=== PATIENT | female | born 1950 | race Caucasian/White ===

== ENCOUNTER 2019-01-24 09:02 | Emergency (ER) | payer MEDICARE, OTHER ==
[2019-01-24 09:24] VITALS: BP 159/93
--- NOTE | 2019-01-24 09:43 | ED ---
Throat Pain/Nasal Congestion - HPI Summary HPI Summary: Sinus congestion, coughing, post nasal drip and eye irritation. Onset 8 days ago. She has had some pressure in both ears as well. No SOB. No fever or chills. Symptoms are moderate. No other complaints. - History of Current Complaint Chief Complaint: UCGeneralIllness Time Seen by Provider: 01/24/19 09:27 - Allergies/Home Medications Allergies/Adverse Reactions: Allergies Allergy/AdvReac Type Severity Reaction Status Date / Time No Known Allergies Allergy Verified 01/24/19 09:19 Home Medications: Home Medications guaiFENesin [Mucinex] 600 mg PO Q12HR PRN 01/24/19 [History Confirmed 01/24/19] PMH/Surg Hx/FS Hx/Imm Hx Infectious Disease History: No Infectious Disease History: Denies: Traveled Outside the [place] in Last 30 Days - Family History Known Family History: Positive: None - Social History Occupation: Retired Lives: With Family Alcohol Use: None Substance Use Type: Reports: None Smoking Status (MU): Never Smoked Tobacco Review of Systems Constitutional: Negative Positive: Drainage, Erythema Positive: Nasal Discharge Positive: Cough All Other Systems Reviewed And Are Negative: Yes Physical Exam Triage Information Reviewed: Yes Vital Signs On Initial Exam: Initial Vitals Temp Pulse Resp BP Pulse Ox 98.5 F 77 20 159/93 100 01/24/19 09:20 01/24/19 09:20 01/24/19 09:20 01/24/19 09:20 01/24/19 09:20 Vital Signs Reviewed: Yes Appearance: Positive: Well-Appearing, No Pain Distress Skin: Positive: Warm, Skin Color Reflects Adequate Perfusion Head/Face: Positive: Normal Head/Face Inspection Eyes: Positive: EOMI, MARYANNE, Conjunctiva Inflammed, Discharge ENT: Positive: Pharyngeal erythema, Nasal congestion, TM dull - bilateral retraction, Sinus tenderness Neck: Positive: Nontender Respiratory/Lung Sounds: Positive: Clear to Auscultation, Breath Sounds Present Cardiovascular: Positive: RRR. Negative: Murmur Abdomen Description: Negative: Distended Musculoskeletal: Positive: Strength/ROM Intact Neurological: Positive: Sensory/Motor Intact, Alert, Oriented to Person Place, Time, CN Intact II-III Psychiatric: Positive: Normal - [place] Coma Scale Best Eye Response: 4 - Spontaneous Best Motor Response: 6 - Obeys Commands Best Verbal Response: 5 - Oriented Coma Scale Total: 15 Diagnostics - Vital Signs Vital Signs Temp Pulse Resp BP Pulse Ox 01/24/19 09:20 98.5 F 77 20 159/93 100 - Laboratory Lab Statement: Any lab studies that have been ordered have been reviewed, and results considered in the medical decision making process. EENT Course/Dx - Course Course Of Treatment: 68 yr old with sinusitis and conjunctivitis. Rx meds. DC home. - Diagnoses Provider Diagnoses: Sinusitis, Conjunctivitis, Hypertension Discharge - Sign-Out/Discharge Documenting (check all that apply): Patient Departure All imaging exams completed and their final reports reviewed: No Studies - Discharge Plan Condition: Good Disposition: HOME Prescriptions: Amoxicillin/Clavulanate TAB* [Augmentin TAB 875*] 875 mg PO BID #20 tab Sulfacetamide 10 % OPTH.TANNER* [Sulamyd 10% Opth*] 1 drop BOTH EYES Q4H #1 btl Patient Education Materials: Sinusitis (ED), Conjunctivitis (ED), Hypertension (ED) Referrals: No Primary Care Phys,NOPCP [Primary Care Provider] - [facility] [Outside] - 01/27/19 - Billing Disposition and Condition Condition: GOOD Disposition: Home
== END 2019-01-24 09:41 | disposition home or self-care (01) ==
LOC: UCCORT 09:02
DX: J32.9 Chronic sinusitis, unspecified (principal); H10.9 Unspecified conjunctivitis; I10 Essential (primary) hypertension
CPT/HCPCS: 99202; G0463